=== PATIENT | female | born 1990 | race African-American/Black ===

== ENCOUNTER 2023-06-04 12:39 | Emergency (ER) | payer OTHER ==
[~2023-06-04] VITALS: Ht 175.3 cm; Wt 99.0 kg
[2023-06-04 12:45] VITALS: O2SAT 100
[2023-06-04 16:37] VITALS: BP 135/82; PULSE 85; RESP 20; TEMP 98.4
== END 2023-06-04 16:39 | disposition home or self-care (01) ==
LOC: ER 12:39
DX: R07.9 Chest pain, unspecified (principal); J45.909 Unspecified asthma, uncomplicated; Z98.890 Other specified postprocedural states; V98.8XXA Other specified transport accidents, initial encounter; Y93.89 Activity, other specified; Y92.89 Other specified places as the place of occurrence of the external cause; Y99.8 Other external cause status
CPT/HCPCS: 99281; Z7610